=== PATIENT | female | born 1980 | race Caucasian/White ===

== ENCOUNTER 2017-01-24 09:53 | Day surgery (SDC) | payer BC ==
[~2017-01-24] VITALS: Ht 172.7 cm; Wt 64.8 kg
[~2017-01-24 09:53] MED LIST: DOCUSATE SODIU100 MG PO; ENDOCET 5-3251 EACH PO; GAS RELIEF 8080 MG PO; IBUPROFEN800 MG PO; PRENATAL TABLE1 EAC3 PO; ZANTAC75 M1 PO
[2017-01-24 10:29] VITALS: BP 128/76
[2017-01-24 10:34] LABS: EOSINOPHIL (%) 1.4 % (0-5); EOSINOPHIL COUNT 0.1 K/uL (0-0.3); HEMATOCRIT 42.1 % (36.0-46.0); IMMATURE GRANULOCYTE (%) 0.2 % (0.0-0.7); INSTRUMENT ABS NEUTROPHIL CT 3.1 K/uL; LYMPHOCYTE COUNT 1.6 K/uL (1.0-2.8); MCH 31.1 PG (29.0-34.0); MCHC 33.5 G/DL (30.0-36.0); MCV 92.7 FL (83-99); MONOCYTE (%) 5.9 % (3-12); MONOCYTE COUNT 0.3 K/uL (0-0.8); NEUTROPHIL (%) 60.7 % (45-76); NEUTROPHIL COUNT 3.1 K/uL (1.8-6.4); PLATELET COUNT 254 K/uL (156-360); RBC DIS.WIDTH-CV 12.4 % (11.8-14.6); RBC DIS.WIDTH-SD 42.7 % (39-53); RED BLOOD COUNT 4.54 M/uL (3.80-5.20); WHITE BLOOD COUNT 5.1 K/uL (4.1-10.2)
[2017-01-24 12:16] VITALS: BP 120/72
[2017-01-24 12:32] VITALS: BP 148/87
[2017-01-24 13:22] VITALS: BP 114/75
== END 2017-01-24 13:25 | disposition home or self-care (01) ==
LOC: SDC
PROVIDERS: Obstetrics & Gynecology
PROC: 10D17ZZ Extraction of Products of Conception, Retained, Via Natural or Artificial Opening (ICD-10-PCS; principal; 2017-01-24)
DX: O02.1 Missed abortion (principal); Z82.49 Family history of ischemic heart disease and other diseases of the circulatory system; Z87.891 Personal history of nicotine dependence; K21.9 Gastro-esophageal reflux disease without esophagitis
CPT/HCPCS: 85025; 86900; 86901; 88305; J0330; J0690; J1100; J1885; J2250; J2405; J3010

== ENCOUNTER 2017-08-06 02:13 | Emergency (ER) | payer BC ==
[~2017-08-06] VITALS: Ht 175.3 cm; Wt 65.5 kg
[2017-08-06 02:32] LABS: ADD MIUA? NO; BILIRUBIN NEGATIVE; BLOOD NEGATIVE; COLOR COLORLESS ((YELLOW)); GLUCOSE (STRIP) NEGATIVE; KETONES NEGATIVE; LEUKOCYTES NEGATIVE; NITRITE NEGATIVE; PROTEIN (STRIP) NEGATIVE; SPECIFIC GRAVITY 1.005 (1.000-1.030); UCUL ADDED? NO; UROBILINOGEN 0.2 MG/DL (0.2-1.0)
[2017-08-06 02:52] LABS: HEMATOCRIT 38.1 % (36.0-46.0); MCH 31.1 PG (29.0-34.0); MCHC 33.6 G/DL (30.0-36.0); MCV 92.7 FL (83-99); MEAN PLAT.VOLUME 11.7 uM^3 (9.5-12.4); PLATELET COUNT 209 K/uL (156-360); RBC DIS.WIDTH-SD 41.5 % (39-53); RED BLOOD COUNT 4.11 M/uL (3.80-5.20); WHITE BLOOD COUNT 7.1 K/uL (4.1-10.2)
[2017-08-06 02:56] LABS: CREATININE 0.9 mg/dL (0.6-1.3); POTASSIUM 3.5 mEq/L (3.7-5.4)
[2017-08-06 03:01] LABS: CHLORIDE 108 mEq/L (99-109); POTASSIUM 3.5 mEq/L (3.7-5.4); SODIUM 141 mEq/L (136-147)
[2017-08-06 03:03] LABS: GLUCOSE 100 mg/dL (70-99)
[2017-08-06 03:04] LABS: ANION GAP 9 MEQ/L (2-14)
[2017-08-06 03:05] LABS: TOTAL BILIRUBIN 0.4 mg/dL (0.0-1.0)
[2017-08-06 03:06] LABS: ALKALINE PHOSPHATASE 60 IU/L (3-129)
[2017-08-06 03:07] LABS: GFR ESTIMATE (CALCULATED) > 59 mL/min/
[2017-08-06 03:08] LABS: UREA NITROGEN (BUN) 13 mg/dL (9-23)
[2017-08-06 03:10] LABS: LIPASE 36 U/L (1.0-51.0)
[2017-08-06 03:16] LABS: QUANTITATIVE HCG < 4.0 MIU/ML
[2017-08-06 05:51] VITALS: BP 103/66
== END 2017-08-06 05:52 | disposition home or self-care (01) ==
LOC: EME 02:13
PROVIDERS: Emergency Medicine
DX: K42.0 Umbilical hernia with obstruction, without gangrene (principal); K76.9 Liver disease, unspecified; Z87.891 Personal history of nicotine dependence; K21.9 Gastro-esophageal reflux disease without esophagitis; Z90.49 Acquired absence of other specified parts of digestive tract
CPT/HCPCS: 74177; 80047; 80053; 81003; 83605; 83690; 84702; 85027; 99281; 99284; J2405; J3010; J7030

== ENCOUNTER 2017-09-11 05:30 | Day surgery (SDC) | payer BC ==
[~2017-09-11] VITALS: Ht 175.3 cm; Wt 65.8 kg
[~2017-09-11 05:30] MED LIST changes: +BALANCE B-501 EAC1 PO
[2017-09-11 06:18] VITALS: BP 115/65
[2017-09-11] MEDS ORDERED: NORCO 5/3251 TABLET PO (08:54)
[2017-09-11 09:45] VITALS: BP 116/55
[2017-09-11 10:40] VITALS: BP 113/59
[2017-09-12 09:44] LABS: INTERNAL CONTROL VALID? YES
== END 2017-09-11 10:50 | disposition home or self-care (01) ==
LOC: SDC 05:30
PROVIDERS: Surgery
PROC: 0WQF0ZZ Repair Abdominal Wall, Open Approach (ICD-10-PCS; principal; 2017-09-11)
DX: K43.0 Incisional hernia with obstruction, without gangrene (principal); Z87.891 Personal history of nicotine dependence
CPT/HCPCS: 84703; J0131; J0690; J1100; J1885; J2250; J2405; J3010; S0020